=== PATIENT | male | born 1970 | race Caucasian/White ===

== ENCOUNTER → 2020-05-09 | Outpatient (CLI) | payer OTHER ==
[2020-05-09 11:25] LABS: HEMOGLOBIN 11.7 gm/dl (14.0-17.5); RED BLOOD COUNT 4.12 M/UL (4.20-5.50); WHITE BLOOD COUNT 7.6 K/UL (4.5-11.0)
[2020-05-09 11:52] LABS: BUN/CREATININE RATIO 15 (0-10)
== END ==
LOC: LAB 10:25
PROVIDERS: Nurse Practitioner Family
DX: C73 Malignant neoplasm of thyroid gland (principal); R53.83 Other fatigue; E78.00 Pure hypercholesterolemia, unspecified; I10 Essential (primary) hypertension; E21.0 Primary hyperparathyroidism; E03.9 Hypothyroidism, unspecified; C75.0 Malignant neoplasm of parathyroid gland; Z90.09 Acquired absence of other part of head and neck
CPT/HCPCS: 36415; 80053; 80061; 82330; 82652; 83970; 84443; 85027